=== PATIENT | male | born 1995 | race Caucasian/White ===

== ENCOUNTER 2016-04-11 09:13 | Emergency (ER) | payer BC ==
[~2016-04-11] VITALS: Ht 182.9 cm; Wt 74.5 kg
[~2016-04-11 09:13] MED LIST: HYDR-3498 PO; IBUP-1542 PO
[2016-04-11 09:18] VITALS: Ht 182.9 cm; Wt 74.5 kg
[2016-04-11] MEDS ORDERED: ACETAMINOPHEN 500 MG TAB PO STA (09:49)
[2016-04-11] MEDS ORDERED: ONDANSETRON (ODT) 4 MG TAB ODT STA (09:49)
--- NOTE | 2016-04-11 09:55 | ERD ---
ER Documentation Chief Complaint Date/Time DATE: 04/11/16 TIME: 09:50 Chief Complaint cold symptoms x 2 days, unable to sleep last night HPI The patient is a 21-year-old male here with his girlfriend for 2 days of fever, body aches, mild headache, and nausea. He denies vomiting, diarrhea, difficulty breathing, shortness of breath, chest pain, neck pain, neck stiffness , photophobia, dizziness, lightheadedness, sore throat, cough, earache, or any other symptoms. No home treatments. No international travel. No sick contacts. Patient denies smoking. ROS All systems reviewed and are negative except as per history of present illness. Medications Home Meds Active Scripts Ondansetron Hcl* (Zofran*) 4 Mg Tablet, 4 MG PO Q6H for NAUSEA AND/OR VOMITING, #9 TAB Prov:VICTORIA GHOSH, DATA GOVERNANCE CONSULTANT 04/11/16 Acetaminophen* (Tylenol*) 325 Mg Tablet, 2 TAB PO Q6 Y for PAIN AND OR ELEVATED TEMP, #20 TAB Prov:VICTORIA GHOSH NP 04/11/16 Ibuprofen* (Motrin*) 600 Mg Tab, 600 MG PO Q6, #30 TAB Prov:PETER MENDEZ MD 09/21/14 Hydrocodone Bit-Acetaminophen* ([place]*) 5-325 Mg Tab, 1 TAB PO Q6 Y for PAIN, # 20 TAB Prov:PETER MENDEZ MD 09/21/14 Allergies Allergies: Coded Allergies: Penicillins (Verified Allergy, Unknown, pt forgot his reaction, 09/21/14) PMhx/Soc History of Surgery: No Anesthesia Reaction: No Hx Neurological Disorder: No Hx Respiratory Disorders: No Hx Cardiac Disorders: No Hx Psychiatric Problems: No Hx Miscellaneous Medical Probl: No Hx Alcohol Use: No Hx Substance Use: No Hx Tobacco Use: No Smoking Status: Never smoker Physical Exam Vitals Vital Signs Date Time Temp Pulse Resp B/P Pulse Ox O2 Delivery O2 Flow Rate FiO2 04/11/16 09:18 99.3 90 18 141/73 98 Physical Exam INITIAL VITAL SIGNS: Reviewed by me GENERAL: Alert. Well developed and well nourished. No respiratory distress HEAD: Head is normocephalic. Atraumatic. EYES: EOMI. No scleral icterus. No conjunctival injection. No clear purulent drainage. ENT: External ears, nose, and mouth normal. Nasal passages patent and without rhinorrhea. Ear canals clear and without erythema or exudates. Tympanic membranes clear, positive light reflex, no injection, no erythema, no bulging, no effusion. Oropharynx is clear and without erythema or exudates. Tonsils +1 and without erythema or exudates. Moist mucous membranes. NECK: Supple. Full range of motion. Trachea midline. No meningismus. RESPIRATORY: No tachypnea. Clear to auscultation bilaterally. No wheezing, rales , or rhonchi. CV: Regular rate and rhythm. No murmurs, rubs, or gallops ABDOMEN: Soft, non-distended, non-tender. No guarding. No rebound. No masses. Bowel sounds normal in all quadrants. BACK: No CVA tenderness. Full ROM. EXTREMITIES: No obvious deformity. No clubbing or cyanosis. No edema. SKIN: Warm and dry. No diaphoresis. No obvious rashes or lesions. NEUROLOGIC: Alert and oriented x 3. Appropriate. Face is symmetric. Speech is normal. Moves all extremities equally. Results 24 hrs Current Medications Medications (Trade) Dose Ordered Sig/Mayra Route PRN Reason Start Time Stop Time Status Last Admin Dose Admin Acetaminophen (Tylenol Tab) 1,000 mg ONCE STAT PO 04/11/16 09:49 04/11/16 09:50 DC 04/11/16 09:53 Ondansetron HCl (Zofran Odt) 4 mg ONCE STAT ODT 04/11/16 09:49 04/11/16 09:50 DC 04/11/16 09:53 Procedures/MDM Nursing Notes Reviewed Previous Medical Records requested via [facility] [facility]. EMERGENCY DEPARTMENT COURSE / MEDICAL DECISION MAKING: The patient comes to the ED secondary to fever, body aches, mild headache, and nausea 2 days. Differential diagnosis upon initial evaluation includes but is not limited to: Meningitis, sepsis, pneumonia, URI, flu, and others. The patient was treated with Tylenol 1 g, Zofran 4 mg. Final impression: 1. URI, likely viral 2. Nausea Given the patient's well appearance, benign physical exam, no respiratory distress, temperature of 99.3, I have low suspicion at this time for pneumonia, meningitis, sepsis, or other serious cause of illness. Based on patient's history of present illness and physical examination the decision was made to discharge. The patient was re-evaluated after ED treatment and stabilizing measures, and symptoms have improved. He denied nausea, body aches, headache, and states that he wishes to be discharged home at this time. His repeat physical exam was benign. There is no evidence of life threatening injuries or illnesses at this time. On re-examination, patient resting in no distress, stable vital signs, reports feeling better and safe for discharge with outpatient follow up with PMD in 2-3 days. Patient given return precautions. Patient verbalized understanding and agreed to return precautions. All of his questions and concerns were addressed prior to discharge. He agrees with the plan of care. Patient's blood pressure was elevated but appears stable without evidence of hypertensive emergency, end organ damage, chest pain or shortness of breath. The patient was counseled about the risks of untreated hypertension and urged to pursue outpatient monitoring and therapy in 2-3 days with their primary care physician. Prescriptions Tylenol Zofran Departure Diagnosis: Primary Impression: Upper respiratory infection URI type: unspecified viral URI Qualified Code: J06.9 - Viral upper respiratory tract infection Additional Impression: Nausea Condition: Stable VICTORIA GHOSH NP Apr 11, 2016 09:55
[2016-04-11] MEDS ORDERED: ONDA4TAB8 PO (10:29)
[2016-04-11] MEDS ORDERED: ACET325T33 PO (10:29)
== END 2016-04-11 10:36 | disposition home or self-care (01) ==
LOC: FTE 09:13
DX: J06.9 Acute upper respiratory infection, unspecified (principal); R11.0 Nausea
CPT/HCPCS: Z7502; Z7610; 99283